=== PATIENT | female | born 2000 | race Caucasian/White ===

== ENCOUNTER 2024-09-11 20:04 | Emergency (ER) | payer OTHER, SELFPAY ==
[2024-09-11 20:15] VITALS: BP 95/65
[2024-09-11 20:47] LABS: % Basophils 0.6 % (0-2); % Eosinophils 1.6 % (0-6); % Immature Granulocytes 0.3 % (0-0.5); % Lymphocytes 38.9 % (20.5-51.1); % Monocytes 8.2 % (1.7-9.3); % Neutrophils 50.4 % (42.2-75.2); Absolute Eosinophils 0.1 10^3/uL (0-0.7); Absolute Lymphocytes 2.7 10^3/uL (1.2-3.4); Absolute Monocytes 0.6 10^3/uL (0.1-0.6); Absolute Neutrophils 3.5 10^3/uL (1.4-6.5); Hematocrit 43.8 % (37.0-47.0); Hemoglobin 15.3 g/dL (12.0-16.0); Mean Corp Hgb Conc. 34.9 g/dL (33.0-37.0); Mean Corpuscular Hgb 30.9 pg (27.0-31.0); Mean Corpuscular Volume 88.5 fL (81.0-99.0); Mean Platelet Volume 10.1 fL (7.4-10.4); Nucleated Red Blood Cells % 0 %; Platelet Count 230 10^3/uL (130-400); Red Blood Cell Count 4.95 10^6/uL (4.20-5.40); Red Cell Dist. Width 12.4 % (11.5-14.5); White Blood Cell Count 6.9 10^3/uL (4.8-10.8)
[2024-09-11 20:59] LABS: HCG, Serum Qualitative Screen Negative
[2024-09-11 21:04] LABS: ALT (SGPT) 35 U/L (0-35); AST (SGOT) 37 U/L (14-36); Albumin 4.5 g/dl (3.5-5.0); Alkaline Phosphatase 33 U/L (38-126); Blood Urea Nitrogen 11 mg/dl (7-17); Calcium 9.6 mg/dl (8.4-10.2); Carbon Dioxide 21 mmol/L (22-30); Chloride 108 mmol/L (98-107); Glucose 106 mg/dl (70-99); Lipase 333 U/L (23-300); Potassium 4.1 mmol/L (3.5-5.1); Sodium 140 mmol/L (135-145); Total Bilirubin 0.5 mg/dl (0.2-1.3); Total Protein 7.2 g/dl (6.3-8.2); eGFR > 60.00
--- NOTE | 2024-09-11 23:02 | ED.GENMED ---
History of Present Illness
<DEQUAN Trejo - Last Filed: 09/12/24 03:45>
General
Chief Complaint: Abdominal Pain
Source: patient
Time Seen by Provider: 09/11/24 22:35
Nursing documentation reviewed up to this point in time: agreed with
History of Present Illness
History of Present Illness:
Pt is a 24 yo F who presents to the emergency department for epigastric abdominal pain. Pt states that on Monday she had epigastric abdominal pain, N/V/D. She reports that she had N/V/D all day on Monday and into the beginning of Monday. She states
that she has not had vomiting or diarrhea since Monday, and that the abdominal pain and nausea have remained. Pt states that the abdominal pain is located in the epigastric region and that it is non-radiating. She rates the pain a 6/10. Pt denies
ever experiencing this abdominal pain before. She states that she did not take any pain relief medication at home. Pt also states that she has had increased fatigue since the onset of symptoms. She reports that she continues to sleep during the day
and night. She reports that she has had chills today. Pt denies fever, shortness of breath, chest pain, bloating, sick contacts. Pt states that she takes continuous -control and does not take the placebo pill week so she does not have a regular
menstrual period.
Review of Systems
<DEQUAN Trejo - Last Filed: 09/12/24 03:45>
Review of Systems
Allergies reviewed?: Yes
Constitutional: Reports fatigue and chills
EENT: Reports no symptoms
Respiratory: Reports no symptoms
Cardiac: Reports no symptoms
ABD/GI: Reports abdominal pain and nausea
: Reports no symptoms
Neurological: Reports no symptoms
Phy Exam
<DEQUAN Trejo - Last Filed: 09/12/24 03:45>
General Physical Exam
General Presentation: well appearing and no apparent distress
General age: appears stated age
General Skin: warm
General Habitus: normal
General Mental: alert
General Hydration: appears well hydrated
Cardiovascular Exam
Cardiovascular Exam: regular rate/rhythm
Pulmonary Exam
Pulmonary Exam: lungs clear
Gastrointestinal Exam
Gastrointestinal Exam: soft, non distended and abnormal bowel sounds (hypoactive)
Palpation: generalized: Minimal tenderness (in epigastric region )
Course
<DEQUAN Trejo - Last Filed: 09/12/24 03:45>
Orders/Labs/Results
Orders:
Orders
09/11/24 20:18
IV Insert/Care/Rem.- Treatment PRN
Test Result ONCE
09/11/24 20:28
Complete Blood Count/With Diff Urgent
Comprehensive Metabolic Panel Urgent
HCG, Serum Qualitative Screen Urgent
Comment: Notify provider if positive test present
Lipase Urgent
09/11/24 23:37
0.9% Sodium Chloride 1000 ml [Nss] 1,000 ml IV BOLUS
Pantoprazole [Protonix IV] 40 mg IV NOW STA
09/12/24 00:00
US Abdomen Complete/Upper Urgent
Reason For Exam: gen upper abd pain x 3 d, elevated lipase
Abnormal Lab Results
09/11/24
20:28
Chloride 108 H mmol/L
(98-107)
Carbon Dioxide 21 L mmol/L
(22-30)
Glucose 106 H mg/dl
(70-99)
AST 37 H U/L
(14-36)
Alkaline Phosphatase 33 L U/L
(38-126)
Lipase 333 H U/L
(23-300)
09/11/24 20:28
09/11/24 20:28
Vital Signs
Initial and Last Documented VS:
Initial Vital Signs
Temp Pulse Resp BP Pulse Ox
98.3 F 65 19 95/65 100
09/11/24 20:15 09/11/24 20:15 09/11/24 20:15 09/11/24 20:15 09/11/24 20:15
Last Documented Vital Signs
Temp Pulse Resp BP Pulse Ox
98.3 F 63 18 95/56 99
09/11/24 20:15 09/12/24 01:50 09/11/24 23:49 09/12/24 01:50 09/12/24 01:50
<Zoila Diamond, DO - Last Filed: 09/12/24 01:50>
Orders/Labs/Results
Orders:
Orders
09/11/24 20:18
IV Insert/Care/Rem.- Treatment PRN
Test Result ONCE
09/11/24 20:28
Complete Blood Count/With Diff Urgent
Comprehensive Metabolic Panel Urgent
HCG, Serum Qualitative Screen Urgent
Comment: Notify provider if positive test present
Lipase Urgent
09/11/24 23:37
0.9% Sodium Chloride 1000 ml [Nss] 1,000 ml IV BOLUS
Pantoprazole [Protonix IV] 40 mg IV NOW STA
09/12/24 00:00
US Abdomen Complete/Upper Urgent
Reason For Exam: gen upper abd pain x 3 d, elevated lipase
Abnormal Lab Results
09/11/24
20:28
Chloride 108 H mmol/L
(98-107)
Carbon Dioxide 21 L mmol/L
(22-30)
Glucose 106 H mg/dl
(70-99)
AST 37 H U/L
(14-36)
Alkaline Phosphatase 33 L U/L
(38-126)
Lipase 333 H U/L
(23-300)
09/11/24 20:28
12/11/24 20:28
Vital Signs
Initial and Last Documented VS:
Initial Vital Signs
Temp Pulse Resp BP Pulse Ox
98.3 F 65 19 95/65 100
09/11/24 20:15 09/11/24 20:15 09/11/24 20:15 09/11/24 20:15 09/11/24 20:15
Last Documented Vital Signs
Temp Pulse Resp BP Pulse Ox
98.3 F 63 18 95/56 99
09/11/24 20:15 09/12/24 01:50 09/11/24 23:49 09/12/24 01:50 09/12/24 01:50
<DEQUAN Trejo - Last Filed: 09/12/24 03:45>
MDM/Problems Addressed
Differential Diagnosis Includes:
Cholecystitis, acute pancreatitis, GERD, gastroenteritis
<DEQUAN Trejo - Last Filed: 09/12/24 03:45>
*Critical Care Note
Total Time (30-74mins, 75-104mins- exclusive of procedures): Not Applicable
<Zoila Diamond DO - Last Filed: 09/12/24 01:50>
*Radiology
Radiology exam reviewed: radiology read reviewed (Abdominal exam is unremarkable)
*Pulse Oximetry
Patient hypoxic: no
ED Attending Note
<DEQUAN Trejo - Last Filed: 09/12/24 03:45>
-
Portions of this chart may have been created with voice recognition software.� Occasional wrong word or��sound alike� substitutions may have occurred due to the inherent limitations of voice recognition software.
<Zoila Diamond DO - Last Filed: 09/12/24 01:50>
ED Attending Note
Patient seen and examined by attending physician: Yes
I performed the substantive portion of visit, reviewed & personally made and approve the management plan that is documented in note by myself or LIZZIE.: Yes
ED Attending Note:
This is a 24-year-old female with no significant past medical history save for endometriosis, chronically maintained on control pills. She complains of generalized upper abdominal pain accompanied with nausea, vomiting, diarrhea that began 3
nights ago, with persistent symptoms throughout the night until approximately 5/6 AM the following morning. She reports no further vomiting nor diarrhea but continues with intermittent nausea and continues with epigastric abdominal pain that is
constant with intermittent waves of moderate to severe pain. She has been tolerating clear liquids without change in pain but reports increased abdominal pain and increased nausea when attempting to eat chicken yesterday. She has been taking
Zofran intermittently perhaps 3 doses over the past 3 days. She has not had a fever nor chills. No close contacts with similar symptoms.
No history of similar episodes in the past.
No recent travel nor recent antibiotic use.
She admits to generalized fatigue, slept for the first 2 days but has not had a fever.
Denies risk of .
Her only medications are control pills as well as trazodone.
She is a non-smoker. Admits to rare alcohol use but no recent alcohol consumption. Denies drug use.
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
GENERAL: Alert , in no apparent distress. 24-year-old female appears her stated age, bright and alert, pleasant, appears in no acute distress. Mother is accompanying. Vital signs within normal limits save for borderline low blood pressure.
Mother is accompanying.
EYE: pupils equal and reactive. anicteric
NECK: Supple, nontender, no meningismus, no significant adenopathy.
ENT: posterior pharynx is clear, oral mucosa is minimally dry. No rhinorrhea.
CARDIAC: Regular rate and rhythm. no murmur.
LUNGS: Clear breath sounds bilaterally, no acute respiratory distress, no wheezes/rales/rhonchi
ABDOMEN: Soft, nondistended, moderate tenderness epigastric region without rebound or guarding nor rigidity, no cvat. normoactive BS.
NEUROLOGICAL: Alert and oriented x3, no focal neuro deficits. Gait is tello and steady.
SKIN: Warm and dry, normal color, skin intact. No rash.
MUSCULOSKELETAL: No C/C/E. peripheral pulses are full and equal b/l. No palpable tenderness.
PSYCH: Normal and appropriate interaction.
Concern for acute gastroenteritis either viral versus foodborne, concern for acute gastritis, acute pancreatitis, acute cholecystitis.
Labs are unremarkable save for mildly elevated lipase of 333, minimally elevated AST of 37, all other LFTs within normal limits. hCG is negative.
Will initiate IV fluids for mild hypotension, clinically mildly dry in appearance. Will give an IV dose of Protonix for potential gastritis.
Will check abdominal ultrasound.
01:50
Patient feeling improved after IV fluids, IV Protonix.
Abdominal ultrasound is unremarkable.
Will discharge to home with prescription for short course of Protonix. Will refill Zofran for as needed nausea.
Recommend continuing clear liquids, bland diet.
Prompt follow-up with PCP for recheck.
Return precautions discussed.
Discharge Plan
Departure
Patient Disposition: Home (Routine Discharge)
Date of Disposition: 09/12/24
Time of Disposition: 01:48
Patient with high blood pressure during this ER visit?: No
Condition: Good
Discharge Problem:
Acute gastroenteritis, Acute gastritis
Instructions: Clear Liquid Diet, [place] Diet, Gastritis (DC)
Prescriptions:
New
pantoprazole [Protonix] 40 mg tablet,delayed release (DR/EC)
40 mg PO DAILY Qty: 30 0RF
ondansetron 4 mg tablet,disintegrating
4 mg PO QID PRN (Reason: nausea and vomiting) Qty: 20 0RF
No Action
No Current Medications
Referrals:
Eilda Gilbert MD [Family Provider] - Call in 1-3 days for appt
Interventions
Interventions:
*Risk Screen - Suicide Last Done: 09/11/24 20:15
*General Assessment Last Done: 09/12/24 00:54
*Neglect/Abuse Screening Last Done: 09/11/24 20:15
ED- Fall Risk Assessment Last Done: 09/12/24 00:54
*ED COVID-19 Vaccine History Last Done: 09/12/24 01:49
*Nursing Disposition Last Done: 09/12/24 01:53
HS-Xevuib-[id number] Assessment Last Done: 09/12/24 00:53
Discharge Date and Time
Discharge Date/Time: 09/12/24 01:54
Print Language: [place]
[2024-09-11 23:49] VITALS: BP 97/62
[2024-09-11] MEDS: NSS 1000 IV (23:56)
[2024-09-11] MEDS: PROTONIX IV 40 MG IV (23:56)
[2024-09-12 01:49] VITALS: BMI 26.7
[2024-09-12 01:50] VITALS: BP 95/56
== END 2024-09-12 01:54 | disposition home or self-care (01) ==
LOC: EMR 20:04
PROVIDERS: Emergency Medicine; EMERGENCY PHYSICIAN Emergency Medicine; FAMILY PHYSICIAN Internal Medicine
DX: K52.9 Noninfective gastroenteritis and colitis, unspecified (principal); K29.00 Acute gastritis without bleeding
CPT/HCPCS: 96374; 96361; 99284; 76700; 80053; 83690; 84703; 85025